=== PATIENT | male | born 1990 ===

== ENCOUNTER 2018-08-27 20:08 | Emergency (ER) | payer OTHER ==
[2018-08-27] MEDS ORDERED: TETANUS/DIPHTHERIA/PERTUSSIS 0.5 ML SYRINGE IM ONE (20:25)
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
[2018-08-27] MEDS ORDERED: BUFFERED LIDOCAINE 10 ML SYRINGE SUBQ STA (20:41)
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
[2018-08-27] MEDS ORDERED: ceFAZolin 1 GM in SODIUM CHLORIDE 0.9% MINIBAG 100 ML IV STA (21:24)
[2018-08-27 22:05] VITALS: BP 144/94
== END 2018-08-27 22:31 | disposition home or self-care (01) ==
LOC: ED 20:08
DX: S91.332A Puncture wound without foreign body, left foot, initial encounter (principal); W32.0XXA Accidental handgun discharge, initial encounter; Y93.89 Activity, other specified; Y92.009 Unspecified place in unspecified non-institutional (private) residence as the place of occurrence of the external cause; R20.0 Anesthesia of skin; Z23 Encounter for immunization
CPT/HCPCS: 90471; 96365; 99283

== ENCOUNTER 2018-08-27 22:46 | Outpatient (CLI) | payer OTHER | END 2018-08-27 22:47 | disposition critical access hospital (66) | LOC: EMS 22:46 | PROVIDERS: ATTEND Surgery | DX: S91.302A Unspecified open wound, left foot, initial encounter (principal); W32.0XXA Accidental handgun discharge, initial encounter; Y93.89 Activity, other specified; Y92.009 Unspecified place in unspecified non-institutional (private) residence as the place of occurrence of the external cause | CPT/HCPCS: A0425; A0429 ==

== ENCOUNTER 2023-02-05 21:39 | Outpatient (CLI) | payer OTHER | END 2023-02-05 23:59 | disposition critical access hospital (66) | LOC: EMS 21:39 | DX: N50.89 Other specified disorders of the male genital organs (principal); N50.811 Right testicular pain; Z98.52 Vasectomy status | CPT/HCPCS: A0425; A0429 ==

== ENCOUNTER 2023-02-05 21:55 | Emergency (ER) | payer OTHER ==
[2023-02-05] MEDS ORDERED: HYDROmorphone 1 MG/ML CARPUJECT IVP STA ×2 (22:01→22:22)
--- NOTE | 2023-02-05 22:03 | ED Physician Documentation ---
History of Present Illness - Stated complaint Stated Complaint: SCROTAL SWELLING/POST OP PAIN - Chief complaint Chief Complaint: General - History obtained from History obtained from: Patient (Otherwise healthy 32-year-old gentleman had a vasectomy today by Dr. Carvalho in the office leaving around 330 this afternoon. He was quite uncomfortable this evening and developed significant swelling and pain.) PD PAST MEDICAL HISTORY - Past Surgical History Past Surgical History: No - Present Medications Home Medications: Ambulatory Orders Medication Instructions Recorded Confirmed cephALEXin [Keflex] 500 mg PO Q6H #28 capsule 08/27/18 - Allergies Allergies/Adverse Reactions: Allergies Allergy/AdvReac Type Severity Reaction Status Date / Time No Known Drug Allergies Allergy Verified 08/27/18 20:13 - Social History Does the pt smoke?: No Smoking Status: Never smoker Does the pt drink ETOH?: Yes Does the pt have substance abuse?: No - Immunizations Immunizations are current?: No PD ED PE NORMAL - Vitals Vital signs reviewed: Yes - General General: Alert and oriented X 3, No acute distress - Abdomen Abdomen: Normal bowel sounds, Soft, Non tender - Male Male : Other (Significant right-sided scrotal swelling extending up into the inguinal canal.) - Neuro Neuro: Alert and oriented X 3, Normal speech Results - Vitals Vitals: Vital Signs - 24 hr 02/05/23 02/05/23 02/05/23 21:59 22:56 23:12 Temperature 36.4 C L Heart Rate 78 68 78 Respiratory 22 18 15 Rate Blood Pressure 133/83 H 106/90 H 115/77 O2 Saturation 100 98 97 Oxygen O2 Source Room air - Labs Labs: Laboratory Tests 02/05/23 02/05/23 22:08 22:08 WBC 15.9 H RBC 5.41 Hgb 15.0 Hct 45.6 MCV 84.3 MCH 27.7 MCHC 32.9 RDW 13.1 Plt Count 251 MPV 10.5 Neut # (Auto) 10.9 H Lymph # (Auto) 2.9 [place] # (Auto) 1.4 H Eos # (Auto) 0.5 Baso # (Auto) 0.1 Absolute Nucleated RBC 0.00 Nucleated RBC % 0.0 Sodium 138 Potassium 3.6 Chloride 104 Carbon Dioxide 27 Anion Gap 7.0 BUN 11 Creatinine 1.0 Estimated GFR (MDRD) 86 L Glucose 113 H Calcium 9.4 PD Medical Decision Making - ED course ED course: 32-year-old gentleman presents with significant scrotal swelling and pain status post vasectomy this afternoon. He looks to have a large hematoma on exam and ultrasonography was ordered as well as pain control. The surgeon who did his surgery is now out of town and not available but I was able to consult with him unofficially and he recommends urgent transfer for evaluation. Preliminary ultrasound report is a 6 x 7 x 4 cm hematoma with no Doppler flow to the right Testicle. Called to [facility] for potential transfer at 10:34 PM. Shortly thereafter the hospital had given me his cell phone number and I left a message. Since he did not immediately return the message and there was time sensitive diagnosis I did call the emergency department there and spoke with Dr. Coleman who will try to get a hold of him as well. Dr. Coleman is willing to be the accepting physician for an ED to ED transfer if we are able to secure urology consultation. Dr. Gaffney did call me back and we discussed the case around 11:15 PM and he is willing to care for the patient. We will get him Expeditiously transferred to [place] for definitive repair. Departure - Departure Disposition: 02 Transfer Acute Care Hosp Clinical Impression: Evaluation postoperative testicular pain within 30 days vasectomy, Scrotal hematoma, Impaired blood flow of right testis Condition: Serious Forms: PCP List Discharge Date/Time: 02/05/23 23:34
[2023-02-05 22:13] LABS: BASOPHILS # (AUTO) 0.1 10^3/uL (0.0-0.1); BASOPHILS % (AUTO) 0.8 %; EOSINOPHILS # (AUTO) 0.5 10^3/uL (0.0-0.7); EOSINOPHILS % (AUTO) 3.4 %; HCT - HEMATOCRIT 45.6 % (42.0-52.0); LYMPHOCYTES # (AUTO) 2.9 10^3/uL (1.5-3.5); MEAN CORPUSCULAR HEMOGLOBIN 27.7 pg (27.0-31.0); MEAN CORPUSCULAR HGB CONC 32.9 g/dL (32.0-36.0); MEAN CORPUSCULAR VOLUME 84.3 fL (80.0-94.0); MEAN PLATELET VOLUME 10.5 fL (7.4-11.4); MONOCYTES # (AUTO) 1.4 10^3/uL (0.0-1.0); MONOCYTES % (AUTO) 8.7 %; NEUTROPHILS # (AUTO) 10.9 10^3/uL (1.5-6.6); NEUTROPHILS % (AUTO) 68.5 %; PLT - PLATELET COUNT 251 10^3/uL (130-450); RED BLOOD COUNT 5.41 10^6/uL (4.70-6.10); RED CELL DISTRIBUTION WIDTH 13.1 % (12.0-15.0); WHITE BLOOD COUNT 15.9 x10^3/uL (4.8-10.8)
[2023-02-05] MEDS ORDERED: KETOROLAC 15 MG/ML VIAL IVP STA (22:22)
[2023-02-05 22:30] LABS: CALCIUM 9.4 mg/dL (8.5-10.3); POTASSIUM 3.6 mmol/L (3.5-4.5)
--- NOTE | 2023-02-05 23:16 | Ultrasound Report ---
PROCEDURE: Testicle w/Doppler INDICATIONS: R swelling p vasectomy today TECHNIQUE: Real-time scanning was performed of the scrotum and testicles, with image documentation. Color and p ulse Doppler interrogation was performed of both testicles. COMPARISON: None. FINDINGS: Right: The right testicle is poorly seen. On these images, it is measured at 2.3 cm. Extensive nonvascular heterogeneous material can be seen throughout the right hemiscrotum, with cysti c and solid components. This measures at least 7.7 x 6.5 x 4.1 cm. The right epididymis is not well seen. Left: Testicle is normal in size at 3.2 x 4.8 x 2.9 cm, and homogeneous in echotexture. Epididymis is normal in overall size and morphology. No hydrocele. No varicoceles. Overlying scrotal skin is n ormal in thickness. Doppler: On these images, no flow can be seen within the structure designated as the right testicle. Normal-appearing flow can be seen within the left testicle. IMPRESSION: A large hematoma is seen involving the right hemiscrotum. The structure designated as the right testi edvin demonstrates no flow within it. However, this may simply be a part of the hematoma. The right karen ticle is not seen separate from the significant right scrotal hematoma. (By history, this patient is being transferred [facility] for surgical evaluation.) Note: Concordant preliminary findings given by the aerodynamicist upon the completion of the examination to Dr. López. Reviewed by: Bereket Rae MD on 02/05/2023 10:15 PM [facility] Approved by: Bereket Rae MD on 02/05/2023 10:15 PM [facility]NA Station ID: [id number]
[2023-02-05 23:17] VITALS: BP 115/77; O2SAT 97
== END 2023-02-05 23:34 | disposition short-term general hospital (02) ==
LOC: EDUNIT# → ED 21:55
DX: G89.18 Other acute postprocedural pain (principal); S30.22XA Contusion of scrotum and testes, initial encounter; N50.1 Vascular disorders of male genital organs; X58.XXXA Exposure to other specified factors, initial encounter; Z20.822 Contact with and (suspected) exposure to COVID-19
CPT/HCPCS: 36415; 76870; 80048; 85025; 87635; 93975; 96374; 99285; J1170

== ENCOUNTER 2023-02-05 23:33 | Outpatient (CLI) | payer OTHER | END 2023-02-05 23:59 | disposition short-term general hospital (02) | LOC: EMS 23:33 | PROVIDERS: ATTEND Emergency Medicine | DX: N99.840 Postprocedural hematoma of a genitourinary system organ or structure following a genitourinary system procedure (principal) | CPT/HCPCS: A0425; A0428 ==

== ENCOUNTER 2023-02-25 09:23 | Outpatient (CLI) | payer OTHER | END 2023-02-25 09:24 | disposition left against medical advice (07) | LOC: EMS 09:23 | DX: S49.91XA Unspecified injury of right shoulder and upper arm, initial encounter (principal); R42 Dizziness and giddiness; V28.49XA Other motorcycle driver injured in noncollision transport accident in traffic accident, initial encounter; Y92.414 Local residential or business street as the place of occurrence of the external cause ==